=== PATIENT | male | born 1990 | race Caucasian/White ===

== ENCOUNTER 2020-01-29 20:34 | Emergency (ER) | payer OTHER, SELFPAY ==
--- NOTE | 2020-01-29 20:36 | XR_ITS ---
WS: [id number] HAND LEFT TECHNIQUE: 3 views of the left hand CLINICAL INFORMATION: injury COMPARISON: None. FINDINGS: Normal metacarpals. Normal MCP joint. Metacarpal heads are normal in appearance. Normal PIP and DIP j oints. No evidence of acute fracture or dislocation. Radiocarpal joint: Normal. Carpal bones: Normal. XR/XR hand LT min 3V* [id number] IMPRESSION: Normal left hand.
[2020-01-29 21:09] VITALS: BP 122/74; PULSE 93; RESP 16; TEMP 37.7; O2SAT 98; BMI 31.1
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
[2020-01-29 23:19] VITALS: BP 114/65; PULSE 89; RESP 20; O2SAT 96
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
[2020-01-29] MEDS: sulfamethoxazole-trimeth DS 160-800 mg Tablet 1 TAB PO (23:54)
[2020-01-29] MEDS: bacitracin ointment Pkt 1 EACH TOPICAL (23:54)
--- NOTE | 2020-01-30 | XR_ITS ---
WS: [id number] Right knee, 3 views, 01/30/2020 Clinical Data: injury Comparison: None. Findings: No fractures or dislocations are seen. The joint spaces are normal. The patella is intact. The soft t issues are unremarkable. XR/XR knee RT 3V* [id number] Impression: Negative right knee.
[2020-01-30 01:02] VITALS: BP 121/71; PULSE 78; RESP 14; O2SAT 97
== END 2020-01-30 01:08 | disposition home or self-care (01) ==
PROVIDERS: Emergency Provider Nurse Practitioner Family
DX: S61.422A Laceration with foreign body of left hand, initial encounter (principal); S83.91XA Sprain of unspecified site of right knee, initial encounter; Z87.891 Personal history of nicotine dependence; V69.9XXA Occupant (driver) (passenger) of heavy transport vehicle injured in unspecified traffic accident, initial encounter; Y92.410 Unspecified street and highway as the place of occurrence of the external cause
CPT/HCPCS: 12345; 73130; 73562; 99281; 99283